=== PATIENT | male | born 1945 | race Caucasian/White ===

== ENCOUNTER 2019-03-12 10:00 | Emergency (ER) | payer MEDICARE ==
[2019-03-12 10:21] VITALS: BP 169/72
--- NOTE | 2019-03-12 10:35 | UC ---
Lower Extremity/Ankle HPI - HPI Summary HPI Summary: Pt presents with bilateral lower extremity edema X 1 day. Pt denies CP or SOB. Pt denies hx of CHF. Pt was at PT today and PT noticed edema in bilateral LE. Pt states that he "hates" water and likes salty food. Pt has long hx of calf and lower leg discomfort while ambulating. Pt unsure when swelling began. Pt has sciatic surgery on right side 1 month ago. Began taking neurotin 2 weeks ago - History of Current Complaint Chief Complaint: UCLowerExtremity Stated Complaint: BILATERAL LEG SWELLING Time Seen by Provider: 03/12/19 10:16 Hx Obtained From: Patient Onset/Duration: Lasting Days - unsure length of time. PT noticed swelling earlier today., Still Present Severity Initially: Mild Severity Currently: Mild Pain Intensity: 0 Aggravating Factor(s): Ambulation Alleviating Factor(s): Nothing - unsure what may improve symptoms Able to Bear Weight: Yes - Risk Factors Gout Risk Factors: Age Over 40, Male DVT Risk Factors: Recent Surgery Septic Arthritis Risk Factor: Extremes of Age - Allergies/Home Medications Allergies/Adverse Reactions: Allergies Allergy/AdvReac Type Severity Reaction Status Date / Time No Known Allergies Allergy Verified 03/12/19 10:14 Home Medications: Home Medications Budesonide CAP(NF) 3 mg PO DAILY 03/12/19 [History Confirmed 03/12/19] Gabapentin CAP(*) [Neurontin 300 CAP(*)] 300 mg PO BID 03/12/19 [History Confirmed 03/12/19] Levothyroxine TAB* [Synthroid TAB*] 50 mcg PO DAILY 03/12/19 [History Confirmed 03/12/19] Mesalamine (NF) [Apriso (NF)] 0.375 gm PO QID 03/12/19 [History Confirmed ] Mesalamine W/Cleansing Wipes [Mesalamine] 4 gm [place] BID 03/12/19 [History Confirmed 03/12/19] Metoprolol Tartrate TAB* [Lopressor TAB*] 100 mg PO BID 03/12/19 [History Confirmed 03/12/19] Pantoprazole TAB * [Protonix TAB*] 40 mg PO DAILY 03/12/19 [History Confirmed ] Simvastatin (NF) [Zocor (NF)] 40 mg PO DAILY 03/12/19 [History Confirmed ] PMH/Surg Hx/FS Hx/Imm Hx Previously Healthy: Yes Cardiovascular History: Cardiac Disease, Hypertension - Surgical History Surgical History: Yes Surgery Procedure, Year, and Place: [id number] "Operation", 02/10/19, [place], Appendectomy 1954, Pneumothorax Left x 2, Lower lumbar disc 2007-[place] - Family History Known Family History: Positive: Cardiac Disease - Social History Occupation: Retired Lives: With Family Alcohol Use: None Substance Use Type: None Smoking Status (MU): Former Smoker Length of Time of Smoking/Using Tobacco: 1 PPD x 50 Years Have You Smoked in the Last Year: No When Did the Patient Quit Smoking/Using Tobacco: 2008 - Immunization History Vaccination Up to Date: Yes Review of Systems All Other Systems Reviewed And Are Negative: Yes Constitutional: Positive: Negative Skin: Positive: Negative Eyes: Positive: Negative ENT: Positive: Negative Respiratory: Positive: Negative Cardiovascular: Positive: Negative Gastrointestinal: Positive: Negative Genitourinary: Positive: Negative Motor: Positive: Negative Neurovascular: Positive: Negative Musculoskeletal: Positive: Calf Tenderness - with ambulation, Edema - bilateral LE, Neurological: Positive: Numbness - preexisiting in right foot an dankle Psychological: Positive: Negative Is Patient Immunocompromised?: No Physical Exam Triage Information Reviewed: Yes Appearance: Well-Appearing Vital Signs: Initial Vital Signs Temp 98.1 F 03/12/19 10:12 Pulse 56 03/12/19 10:12 Resp 16 03/12/19 10:12 BP 169/72 03/12/19 10:12 Pulse Ox 97 03/12/19 10:12 Vital Signs Reviewed: Yes Eye Exam: Normal ENT Exam: Normal Dental Exam: Normal Neck exam: Normal Respiratory Exam: Normal Respiratory: Positive: Lungs clear, Normal breath sounds Cardiovascular Exam: Normal Cardiovascular: Positive: RRR, No Murmur, Pulses Normal Musculoskeletal: Positive: Edema @ - bilateral LE, pitting <1 Neurological Exam: Normal Psychological Exam: Normal Skin Exam: Normal - has open sore on right medial [place]. Pt states it was a spontaneous blister that he popped a "Few days ago" Lower Extremity Course/Dx - Differential Dx/Diagnosis Differential Diagnosis/HQI/PQRI: Cellulitis, Tendonitis Provider Diagnosis: Bilateral lower extremity edema Discharge - Sign-Out/Discharge Documenting (check all that apply): Patient Departure All imaging exams completed and their final reports reviewed: No Studies - Discharge Plan Condition: Stable Disposition: HOME Patient Education Materials: Leg Edema (ED) Referrals: Jerome Calvo MD [Primary Care Provider] - As Soon As Possible Additional Instructions: Please follow up with your PCP as soon as possible. Please limit your salt intake, drink plenty of water, and elevate your lower extremities while sitting. If symptoms worsen, please seek care at the closest emergency room immediately. - Billing Disposition and Condition Condition: STABLE Disposition: Home
== END 2019-03-12 10:42 | disposition home or self-care (01) ==
LOC: UCCORT 10:00
DX: R60.9 Edema, unspecified (principal); I10 Essential (primary) hypertension; Z87.891 Personal history of nicotine dependence
CPT/HCPCS: 99201; G0463